=== PATIENT | female | born 1980 | race Caucasian/White ===

== ENCOUNTER 2017-06-29 18:12 | Inpatient (IN) | payer OTHER ==
[~2017-06-29] VITALS: Ht 152.4 cm; Wt 52.0 kg
[~2017-06-29 18:12] MED LIST: CLINDAMYCIN HC300 MG PO; COLACE100 MG PO; ENDOCET 5-3251 EACH PO; FEOSOL325 MG PO; MOTRIN800 MG PO; PERCOCET 5/31 TABLET PO; PROVENTIL HFA6.7 GM IH; REGLAN5 MG PO
[2017-06-29 18:45] LABS: HEMATOCRIT 43.7 % (36.0-46.0); HEMOGLOBIN 14.9 G/DL (11.9-15.5); MCHC 34.1 G/DL (30.0-36.0); MCV 87.9 FL (83-99); PLATELET COUNT 214 K/uL (156-360); RBC DIS.WIDTH-CV 14.3 % (11.8-14.6); RBC DIS.WIDTH-SD 46.1 % (39-53); RED BLOOD COUNT 4.97 M/uL (3.80-5.20); WHITE BLOOD COUNT 8.1 K/uL (4.1-10.2)
[2017-06-29 18:57] LABS: CHLORIDE 101 mEq/L (99-109); POTASSIUM 4.6 mEq/L (3.7-5.4); SODIUM 139 mEq/L (136-147)
[2017-06-29 18:59] LABS: GLUCOSE 94 mg/dL (70-99)
[2017-06-29 19:03] LABS: CREATININE 0.8 mg/dL (0.6-1.3); GFR ESTIMATE (CALCULATED) > 59 mL/min/
[2017-06-29 19:04] LABS: UREA NITROGEN (BUN) 5 mg/dL (9-23)
[2017-06-29] MEDS ORDERED: TYLENOL325 M2 PO (20:42)
[2017-06-29 23:05] VITALS: BP 134/67
[2017-06-30 04:40] VITALS: BP 134/66
[2017-06-30 05:35] LABS: HEMATOCRIT 42.6 % (36.0-46.0); HEMOGLOBIN 13.8 G/DL (11.9-15.5); MCH 28.4 PG (29.0-34.0); MCHC 32.4 G/DL (30.0-36.0); MCV 87.7 FL (83-99); PLATELET COUNT 197 K/uL (156-360); RBC DIS.WIDTH-CV 14.1 % (11.8-14.6); RBC DIS.WIDTH-SD 45.5 % (39-53); RED BLOOD COUNT 4.86 M/uL (3.80-5.20); WHITE BLOOD COUNT 4.8 K/uL (4.1-10.2)
[2017-06-30 06:05] LABS: CHLORIDE 102 MEQ/L (99-109); CREATININE 0.7 MG/DL (0.6-1.3); GFR ESTIMATE (CALCULATED) > 59 mL/min/; POTASSIUM 4.5 MEQ/L (3.7-5.4); SODIUM 137 MEQ/L (136-147); UREA NITROGEN (BUN) 7 mg/dL (9-23)
[2017-06-30 06:07] LABS: GLUCOSE 155 mg/dL (70-99)
[2017-06-30 07:15] VITALS: BP 119/71
[2017-06-30 12:15] VITALS: BP 133/75
[2017-06-30 15:53] LABS: COMMENTS - BLOOD GASES A+C+; DEVICE NC; O2 FLOW 3 L/MIN; SITE LR
[2017-06-30 15:54] LABS: PCO2 46 mm Hg (35-45); PO2 64 mm Hg (80-100); TOTAL RESP RATE 18 resp/min; pH 7.38 (7.35-7.45)
[2017-06-30 15:55] LABS: BASE EXCESS 1.5 mEq/L (-3 to +3); BICARBONATE 27.2 mEq/L (22-26); CARBOXY HGB 2.5 % (0-5)
[2017-06-30 15:58] VITALS: BP 134/57
[2017-06-30 19:15] VITALS: BP 133/70
[2017-06-30 23:21] VITALS: BP 121/71
[2017-07-01 03:14] VITALS: BP 133/61
[2017-07-01 09:26] VITALS: BP 135/67
[2017-07-01 12:19] VITALS: BP 136/70
[2017-07-01 18:46] VITALS: BP 127/63
[2017-07-02] VITALS (7 sets, daily range): BP systolic 105–141; BP diastolic 59–87
[2017-07-03 04:35] VITALS: BP 119/62
[2017-07-03 08:00] VITALS: BP 123/82
[2017-07-03 09:05] LABS: CHLORIDE 97 MEQ/L (99-109); CREATININE 0.7 MG/DL (0.6-1.3); GFR ESTIMATE (CALCULATED) > 59 mL/min/; GLUCOSE 95 mg/dL (70-99); POTASSIUM 3.6 MEQ/L (3.7-5.4); SODIUM 140 MEQ/L (136-147); THYROTROPIN (TSH) 1.7 MIU/L (0.4-5.5); UREA NITROGEN (BUN) 19 mg/dL (9-23)
[2017-07-03 13:08] VITALS: BP 127/81
[2017-07-03 15:32] VITALS: BP 137/81
[2017-07-03 19:13] VITALS: BP 133/90
[2017-07-03 23:59] VITALS: BP 118/75
[2017-07-04 04:25] VITALS: BP 133/87
[2017-07-04 07:25] VITALS: BP 130/72
[2017-07-04 12:35] VITALS: BP 125/91
[2017-07-04 16:29] VITALS: BP 133/78
[2017-07-04 20:00] VITALS: BP 142/72
[2017-07-05 00:34] VITALS: BP 131/76
[2017-07-05 04:08] VITALS: BP 130/73
[2017-07-05 08:41] VITALS: BP 111/66
[2017-07-05] MEDS ORDERED: LEVOFLOXACIN750 MG PO (11:03)
[2017-07-05] MEDS ORDERED: SPIRIVA RESPIMAT4 GM IH (11:04)
[2017-07-05] MEDS ORDERED: DULERA 100 MCG/13 GM IH (11:05)
[2017-07-05] MEDS ORDERED: NICOTINE PATCH1 EAC2 TD (11:05)
[2017-07-05] MEDS ORDERED: ALBUTEROL2.5 MG/0.5 AEROSOL (11:13)
[2017-07-05 11:15] VITALS: BP 165/99
[2017-07-05] MEDS ORDERED: PREDNISONE10 MG PO (11:18)
== END 2017-07-05 15:10 | disposition home or self-care (01) | DRG 192 ==
LOC: EME 18:12 → RME 18:12 → 4SOUTH 22:01 → ENRESERV 22:01 → EDOF 22:01 → ENRESERV 22:26 → 4SOUTH 22:54
PROVIDERS: Hospitalist; Nurse Practitioner Adult Health
DX: J44.0 Chronic obstructive pulmonary disease with (acute) lower respiratory infection (principal); J20.9 Acute bronchitis, unspecified; J44.1 Chronic obstructive pulmonary disease with (acute) exacerbation; E87.6 Hypokalemia; I49.3 Ventricular premature depolarization; I49.1 Atrial premature depolarization; R00.1 Bradycardia, unspecified; I10 Essential (primary) hypertension; F17.210 Nicotine dependence, cigarettes, uncomplicated; F12.90 Cannabis use, unspecified, uncomplicated; Z88.0 Allergy status to penicillin
CPT/HCPCS: 36600; 71046; 71275; 80048; 82803; 84443; 85027; 85379; 93005; 93306; 94640; 94640 76; 94644; 94799; 99202; 99281; 99285; G0378; J1650; J1956; J2930; J7030; J7512

== ENCOUNTER 2017-07-13 16:58 | Inpatient (IN) | payer OTHER ==
[~2017-07-13] VITALS: Ht 152.4 cm; Wt 49.7 kg
[~2017-07-13 16:58] MED LIST changes: +ALBUTEROL2.5 MG/0.5 AEROSOL; +DULERA 100 MCG/13 GM IH; +LEVOFLOXACIN750 MG PO; +NICOTINE PATCH1 EAC2 TD; +PREDNISONE10 MG PO; +SPIRIVA RESPIMAT4 GM IH; +TYLENOL EXTRA500 MG PO
[2017-07-13 18:39] LABS: HEMATOCRIT 40.6 % (36.0-46.0); HEMOGLOBIN 13.7 G/DL (11.9-15.5); MCHC 33.7 G/DL (30.0-36.0); PLATELET COUNT 204 K/uL (156-360); RBC DIS.WIDTH-CV 14.8 % (11.8-14.6); RED BLOOD COUNT 4.56 M/uL (3.80-5.20); WHITE BLOOD COUNT 22.1 K/uL (4.1-10.2)
[2017-07-13 18:53] LABS: ALBUMIN 3.5 g/dL (3.2-4.8); CHLORIDE 100 mEq/L (99-109); POTASSIUM 4.3 mEq/L (3.7-5.4); SODIUM 137 mEq/L (136-147)
[2017-07-13 18:55] LABS: GLUCOSE 114 mg/dL (70-99); TOTAL PROTEIN 6.5 g/dL (6.4-8.3)
[2017-07-13 18:59] LABS: ALKALINE PHOSPHATASE 124 IU/L (3-129); CREATININE 0.7 mg/dL (0.6-1.3); GFR ESTIMATE (CALCULATED) > 59 mL/min/
[2017-07-13 19:00] LABS: UREA NITROGEN (BUN) 9 mg/dL (9-23)
[2017-07-13 19:01] LABS: AST (GOT) 17 IU/L (2-34)
[2017-07-13 19:02] LABS: ALT (GPT) 31 IU/L (3-49)
[2017-07-13 19:08] LABS: QUANTITATIVE HCG < 4.0 MIU/ML
[2017-07-13 19:40] LABS: APPEARANCE CLEAR ((CLEAR)); BILIRUBIN NEGATIVE; BLOOD NEGATIVE; COLOR YELLOW ((YELLOW)); GLUCOSE (STRIP) NEGATIVE; KETONES NEGATIVE; LEUKOCYTES NEGATIVE; NITRITE NEGATIVE; PROTEIN (STRIP) NEGATIVE; SPECIFIC GRAVITY 1.009 (1.000-1.030); UCUL ADDED? NO
[2017-07-13] MEDS ORDERED: SPIRIVA RESPIMAT4 GM IH (20:53)
[2017-07-13] MEDS ORDERED: DULERA 100 MCG/13 GM IH (20:53)
[2017-07-13] MEDS ORDERED: DUONEB 2.5-0.5 M3 ML AEROSOL (20:53)
[2017-07-13] MEDS ORDERED: NICODERM CQ1 EAC2 TD (20:53)
[2017-07-13] MEDS ORDERED: FLINTSTONES1 EACH PO (20:54)
[2017-07-13 23:37] VITALS: BP 131/79
[2017-07-14 03:25] VITALS: BP 130/68
[2017-07-14 05:55] LABS: BASOPHIL (%) 0.2 % (0-1); EOSINOPHIL (%) 0.7 % (0-5); EOSINOPHIL COUNT 0.1 K/uL (0-0.3); HEMATOCRIT 39.4 % (36.0-46.0); HEMOGLOBIN 12.6 G/DL (11.9-15.5); IMMATURE GRANULOCYTE (%) 1.4 % (0.0-0.7); LYMPHOCYTE (%) 13.2 % (15-42); LYMPHOCYTE COUNT 2.3 K/uL (1.0-2.8); MCH 28.7 PG (29.0-34.0); MCV 89.7 FL (83-99); MONOCYTE (%) 6.6 % (3-12); MONOCYTE COUNT 1.1 K/uL (0-0.8); NEUTROPHIL (%) 77.9 % (45-76); NEUTROPHIL COUNT 13.4 K/uL (1.8-6.4); PLATELET COUNT 199 K/uL (156-360); RBC DIS.WIDTH-CV 14.9 % (11.8-14.6); RBC DIS.WIDTH-SD 49.1 % (39-53); RED BLOOD COUNT 4.39 M/uL (3.80-5.20); WHITE BLOOD COUNT 17.2 K/uL (4.1-10.2)
[2017-07-14 06:40] LABS: CHLORIDE 99 MEQ/L (99-109); CREATININE 0.6 MG/DL (0.6-1.3); GFR ESTIMATE (CALCULATED) > 59 mL/min/; SODIUM 139 MEQ/L (136-147); UREA NITROGEN (BUN) 13 mg/dL (9-23)
[2017-07-14 06:42] LABS: GLUCOSE 71 mg/dL (70-99)
[2017-07-14 07:12] VITALS: BP 122/68
[2017-07-14 11:02] VITALS: BP 123/68
[2017-07-14] MEDS ORDERED: SPIRIVA1 INHALATI IH (14:43)
[2017-07-14 15:05] VITALS: BP 128/76
[2017-07-14 20:00] VITALS: BP 105/64
[2017-07-15] VITALS: BP 123/68
[2017-07-15 03:37] VITALS: BP 121/67
[2017-07-15 06:07] LABS: HEMATOCRIT 39.6 % (36.0-46.0); HEMOGLOBIN 13.1 G/DL (11.9-15.5); MCHC 33.1 G/DL (30.0-36.0); MCV 87.8 FL (83-99); PLATELET COUNT 151 K/uL (156-360); RBC DIS.WIDTH-CV 14.6 % (11.8-14.6); RBC DIS.WIDTH-SD 47.3 % (39-53); RED BLOOD COUNT 4.51 M/uL (3.80-5.20); WHITE BLOOD COUNT 9.2 K/uL (4.1-10.2)
[2017-07-15 06:28] LABS: ALBUMIN 2.6 G/DL (3.2-4.8); ALKALINE PHOSPHATASE 104 IU/L (3-129); ALT (GPT) 16 IU/L (3-49); AST (GOT) 12 IU/L (2-34); CHLORIDE 96 MEQ/L (99-109); CREATININE 0.8 MG/DL (0.6-1.3); GFR ESTIMATE (CALCULATED) > 59 mL/min/; POTASSIUM 4.2 MEQ/L (3.7-5.4); SODIUM 136 MEQ/L (136-147); TOTAL BILIRUBIN 1.5 MG/DL (0.0-1.0); TOTAL PROTEIN 5.1 G/DL (6.4-8.3); UREA NITROGEN (BUN) 8 mg/dL (9-23)
[2017-07-15 06:36] LABS: GLUCOSE 92 mg/dL (70-99)
[2017-07-15 07:08] VITALS: BP 107/60
[2017-07-15 15:14] VITALS: BP 129/77
[2017-07-16 00:37] VITALS: BP 109/59
[2017-07-16 06:21] LABS: BASOPHIL (%) 0.2 % (0-1); EOSINOPHIL (%) 2.6 % (0-5); EOSINOPHIL COUNT 0.2 K/uL (0-0.3); HEMATOCRIT 41.4 % (36.0-46.0); HEMOGLOBIN 13.5 G/DL (11.9-15.5); IMMATURE GRANULOCYTE (%) 2.3 % (0.0-0.7); LYMPHOCYTE (%) 14.5 % (15-42); LYMPHOCYTE COUNT 1.3 K/uL (1.0-2.8); MCH 28.8 PG (29.0-34.0); MCHC 32.6 G/DL (30.0-36.0); MCV 88.3 FL (83-99); MONOCYTE (%) 12.5 % (3-12); MONOCYTE COUNT 1.1 K/uL (0-0.8); NEUTROPHIL (%) 67.9 % (45-76); NEUTROPHIL COUNT 5.9 K/uL (1.8-6.4); PLATELET COUNT 153 K/uL (156-360); RBC DIS.WIDTH-CV 14.6 % (11.8-14.6); RBC DIS.WIDTH-SD 46.7 % (39-53); RED BLOOD COUNT 4.69 M/uL (3.80-5.20); WHITE BLOOD COUNT 8.6 K/uL (4.1-10.2)
[2017-07-16 08:01] VITALS: BP 105/69
[2017-07-16] MEDS ORDERED: FLAGYL500 MG PO (16:11)
[2017-07-16] MEDS ORDERED: CIPRO500 MG PO (16:11)
[2017-07-16] MEDS ORDERED: PROTONIX40 MG PO (16:11)
[2017-07-16 16:14] VITALS: BP 116/64
[2017-07-16 18:33] VITALS: BP 116/64
== END 2017-07-16 18:45 | disposition home or self-care (01) | DRG 382 ==
LOC: EME 16:58 → EDOF 22:11 → 5SOUTH 22:11 → ENRESERV 22:14 → 5SOUTH 23:13
PROVIDERS: Emergency Medicine; Hospitalist; Internal Medicine Gastroenterology; Physician Assistant Surgical
DX: K25.5 Chronic or unspecified gastric ulcer with perforation (principal); T38.0X5A Adverse effect of glucocorticoids and synthetic analogues, initial encounter; T39.315A Adverse effect of propionic acid derivatives, initial encounter; J44.9 Chronic obstructive pulmonary disease, unspecified; I10 Essential (primary) hypertension; F17.210 Nicotine dependence, cigarettes, uncomplicated; Z88.0 Allergy status to penicillin
CPT/HCPCS: 71045; 71046; 74177; 74241; 80048; 80053; 81003; 82948; 83605; 84702; 85025; 85027; 87040; 94640; 94640 76; 94760; 94799; 99202; 99281; 99285; C9113; J1170; J1885; J1956; J2405; J3010; J7030; J7050; S0030